=== PATIENT | male | born 1940 | race Caucasian/White ===

== ENCOUNTER 2016-11-10 17:30 | Emergency (ER) | payer MEDICARE, OTHER ==
[2016-11-10 18:43] LABS: BASOPHIL 1.8 % (0-2); EOSINOPHIL 0.9 % (0-7); HCT 27.8 % (42.0-52.0); HGB 9.5 g/dl (13.2-18.0); LYMPHOCYTE 30.6 % (15-48); MCH 36.1 pg (25.0-31.0); MCHC 34.2 g/dL (32.0-36.0); MCV 105.7 fL (78.0-100.0); MONOCYTE 63.1 % (0-12); MPV 12.5 fL (6.0-9.5); NEUTROPHIL 3.6 % (41-80); RBC 2.63 M/uL (4.70-6.00); RDW 23.9 % (11.5-14.0)
[2016-11-10 18:46] LABS: PLT 45 K/uL (150-400); WBC 1.1 K/uL (4.0-10.5)
[2016-11-10 18:49] LABS: BILIRUBIN NEGATIVE (NEGATIVE); BLOOD NEGATIVE Ery/uL (NEGATIVE); CLARITY CLEAR (CLEAR); COLOR YELLOW (YELLOW); GLUCOSE (U) 1+ mg/dL (NORMAL); KETONE (U) TRACE mg/dL (NEGATIVE); LEUKOCYTES NEGATIVE Leu/uL (NEGATIVE); NITRITE NEGATIVE (NEGATIVE); PROTEIN NEGATIVE (NEGATIVE); pH 5.5 (5.0-9.0)
[2016-11-10 18:49] LABS: INR 1.36 (0.9-1.2); PROTHROMBIN TIME 16.3 SECONDS (11.7-14.0); PTT 33.3 SECONDS (23.2-31.4)
[2016-11-10 18:57] LABS: LACTIC ACID 4.2 mmol/L (0.5-2.2)
[2016-11-10 19:01] LABS: ALBUMIN 3.2 g/dL (3.4-4.8); BILIRUBIN - TOTAL 0.9 mg/dL (0.1-1.0); CREATININE 0.7 mg/dL (0.7-1.2); GLOBULIN (CALCULATION) 2.4 g/dL (2.2-4.2); POTASSIUM 3.9 mmol/L (3.5-5.1); TOTAL PROTEIN 5.6 g/dL (6.4-8.3)
== END 2016-11-10 22:51 | disposition home or self-care (01) ==
LOC: FER 17:30
PROVIDERS: Emergency Medicine
DX: D70.9 Neutropenia, unspecified (principal); R50.81 Fever presenting with conditions classified elsewhere; E86.0 Dehydration; E11.9 Type 2 diabetes mellitus without complications; I10 Essential (primary) hypertension; R82.90 Unspecified abnormal findings in urine; Z79.84 Long term (current) use of oral hypoglycemic drugs; Z79.899 Other long term (current) drug therapy; Z85.01 Personal history of malignant neoplasm of esophagus; Z85.830 Personal history of malignant neoplasm of bone; Z85.05 Personal history of malignant neoplasm of liver; Z85.118 Personal history of other malignant neoplasm of bronchus and lung
CPT/HCPCS: 36415; 71020; 80053; 81003; 83605; 85025; 85610; 85730; 87040; 87088; 87804; 87899; 93005

== ENCOUNTER 2017-02-16 12:52 | Inpatient (IN) | payer MEDICARE, OTHER ==
[~2017-02-16] VITALS: Ht 170 cm; Wt 83.0 kg
[2017-02-16 14:06] LABS: ALBUMIN 2.9 g/dL (3.4-4.8); CREATININE 0.5 mg/dL (0.7-1.2); GLOBULIN (CALCULATION) 2.4 g/dL (2.2-4.2); TOTAL PROTEIN 5.3 g/dL (6.4-8.3)
[2017-02-16 14:11] LABS: LACTIC ACID 2.7 mmol/L (0.5-2.2)
[2017-02-16 14:14] LABS: BASOPHIL 1.7 % (0-2); EOSINOPHIL 3.3 % (0-7); HCT 40.7 % (42.0-52.0); HGB 14.8 g/dl (13.2-18.0); MCH 34.3 pg (25.0-31.0); MCHC 36.4 g/dL (32.0-36.0); MCV 94.2 fL (78.0-100.0); MONOCYTE 18.3 % (0-12); NEUTROPHIL 21.7 % (41-80); RBC 4.32 M/uL (4.70-6.00); RDW 13.9 % (11.5-14.0)
[2017-02-16 14:20] LABS: PLT 20 K/uL (150-400)
[2017-02-16 14:21] LABS: WBC 0.6 K/uL (4.0-10.5)
[2017-02-16 16:05] LABS: BILIRUBIN NEGATIVE (NEGATIVE); BLOOD 1+ Ery/uL (NEGATIVE); CLARITY CLEAR (CLEAR); COLOR YELLOW (YELLOW); GLUCOSE (U) NORMAL (NORMAL); KETONE (U) NEGATIVE (NEGATIVE); LEUKOCYTES NEGATIVE Leu/uL (NEGATIVE); NITRITE NEGATIVE (NEGATIVE); PROTEIN NEGATIVE (NEGATIVE)
[2017-02-16 16:28] LABS: BACTERIA TRACE
[2017-02-16 20:10] LABS: INR 1.01 (0.9-1.2); PROTHROMBIN TIME 12.9 SECONDS (11.7-14.0)
[2017-02-16 20:11] LABS: PTT 30.9 SECONDS (23.2-31.4)
[2017-02-16 20:28] LABS: CKMB 4.45 ng/mL (0.97-4.94); TROPONIN T < 0.010 ng/mL
[2017-02-16 22:16] LABS: CKMB 2.71 ng/mL (0.97-4.94); TROPONIN T < 0.010 ng/mL
[2017-02-17 03:15] LABS: BASOPHIL 1.4 % (0-2); EOSINOPHIL 1.4 % (0-7); HCT 38.6 % (42.0-52.0); LYMPHOCYTE 33.8 % (15-48); MCH 34.4 pg (25.0-31.0); MCHC 36.3 g/dL (32.0-36.0); MCV 94.8 fL (78.0-100.0); MONOCYTE 16.2 % (0-12); MPV 10.6 fL (6.0-9.5); NEUTROPHIL 47.2 % (41-80); RBC 4.07 M/uL (4.70-6.00); RDW 13.9 % (11.5-14.0)
[2017-02-17 03:33] LABS: ALBUMIN 2.5 g/dL (3.4-4.8); BILIRUBIN - TOTAL 0.9 mg/dL (0.1-1.0); CREATININE 0.6 mg/dL (0.7-1.2); GLOBULIN (CALCULATION) 2.2 g/dL (2.2-4.2); TOTAL PROTEIN 4.7 g/dL (6.4-8.3); WBC 0.7 K/uL (4.0-10.5)
[2017-02-17 03:34] LABS: PLT 13 K/uL (150-400)
[2017-02-17 03:41] LABS: FT4 (FREE T4) 1.01 ng/dL (0.93-1.70); TSH (THYROID STIM HORMONE) 2.75 uIU/mL (0.270-4.200)
[2017-02-17 03:50] LABS: TROPONIN T < 0.010 ng/mL
[2017-02-18 05:49] LABS: HGB 14.6 g/dl (13.2-18.0); MCHC 35.6 g/dL (32.0-36.0); MCV 95.6 fL (78.0-100.0); MPV 11.3 fL (6.0-9.5); RBC 4.29 M/uL (4.70-6.00); RDW 14.3 % (11.5-14.0)
[2017-02-18 06:04] LABS: ALBUMIN 2.3 g/dL (3.4-4.8); BILIRUBIN - TOTAL 0.8 mg/dL (0.1-1.0); CREATININE 0.6 mg/dL (0.7-1.2); GLOBULIN (CALCULATION) 2.5 g/dL (2.2-4.2); POTASSIUM 3.8 mmol/L (3.5-5.1); TOTAL PROTEIN 4.8 g/dL (6.4-8.3)
[2017-02-18 08:50] LABS: BASOPHIL 0.4 % (0-2); EOSINOPHIL 0.2 % (0-7); HCT 39.2 % (42.0-52.0); MCH 34.3 pg (25.0-31.0); MCHC 35.7 g/dL (32.0-36.0); MCV 96.1 fL (78.0-100.0); MONOCYTE 0.2 % (0-12); MPV 10.4 fL (6.0-9.5); RBC 4.08 M/uL (4.70-6.00); RDW 14.2 % (11.5-14.0); WBC 4.5 K/uL (4.0-10.5)
[2017-02-18 09:15] LABS: PLT 26 K/uL (150-400)
[2017-02-18 09:16] LABS: NEUTROPHIL 88.2 % (41-80)
[2017-02-18 09:20] LABS: BILIRUBIN 1+ mg/dL (NEGATIVE); BLOOD NEGATIVE Ery/uL (NEGATIVE); CLARITY CLEAR (CLEAR); COLOR YELLOW (YELLOW); GLUCOSE (U) NORMAL (NORMAL); KETONE (U) 1+ (SMALL) mg/dL (NEGATIVE); LEUKOCYTES NEGATIVE Leu/uL (NEGATIVE); NITRITE POSITIVE (NEGATIVE); PROTEIN 1+ mg/dL (NEGATIVE); SPECIFIC GRAVITY 1.025 (1.001-1.030); UROBILINOGEN 0.2 mg/dL (0.2-1.0)
[2017-02-18 09:21] LABS: BACTERIA 2+
--- NOTE | 2017-02-18 15:38 | NUR ---
NURSE TO PATIENTS BEDSIDE AFTER CAME TO DESK AND STATED THAT PATIENT WAS NOT KEEPING ON OXYGEN MASK, PT IN RESPIRATORY DISTRESS, LABORED BREATHING O2 SAT 83%, PT PLACED BACK ON 50% VENTI MASK O2 SAT CONTINUED TO REMAIN IN MID 80'S, NON REBREATHER APPLIED TO PATIENT AND , DUO-NEB STARTED, MD NOTIFIED PERSONALLY BY MYSELF. MD REQUESTED TO COME TO BEDSIDE. MD DID NOT COME TO BEDSIDE AT THIS TIME PT IMPROVED. VITALS AT 1540 119/66, O2 SAT ON NON-REBREATHER 97% HR 121 A-FIB. AWARE OF ALL. NO OTHER NEW ORDERS AT THIS TIME
[2017-02-18 17:29] LABS: CREATININE 0.7 mg/dL (0.7-1.2); MAGNESIUM 1.49 mg/dL (1.40-2.10); POTASSIUM 3.5 mmol/L (3.5-5.1)
--- NOTE | 2017-02-18 19:17 | NUR ---
DR. RENTERIA CALLED AND NOTIFIED THAT LACTIC ACID 5.0. DR. RENTERIA ORDERED TO GIVE BICARB AND THAT HE WOULD COME TO THE UNIT. POLYMER TESTER NURSE CLYDE NOTIFIED. BP 102/54 HR 106 O2 90% ON NON-REBREATHER
[2017-02-18 20:35] LABS: INR 1.49 (0.9-1.2); PROTHROMBIN TIME 17.5 SECONDS (11.7-14.0)
[2017-02-18 20:36] LABS: PTT 35.6 SECONDS (23.2-31.4)
[2017-02-18 20:39] LABS: AMYLASE 31 U/L (28-100); LIPASE 6 U/L (13-60)
[2017-02-18 21:21] LABS: BILIRUBIN 1+ mg/dL (NEGATIVE); BLOOD 2+ Ery/uL (NEGATIVE); CLARITY CLEAR (CLEAR); COLOR YELLOW (YELLOW); GLUCOSE (U) NORMAL (NORMAL); KETONE (U) 1+ (SMALL) mg/dL (NEGATIVE); LEUKOCYTES NEGATIVE Leu/uL (NEGATIVE); NITRITE NEGATIVE (NEGATIVE); PROTEIN 1+ mg/dL (NEGATIVE); SPECIFIC GRAVITY >=1.030 (1.001-1.030); UROBILINOGEN 0.2 mg/dL (0.2-1.0)
--- NOTE | 2017-02-19 08:35 | NUR ---
SPOKE WITH MD AND TIME CHECKER, FAMILY IS REQUESTING ALL MEDICATIONS BE TURNED OFF AT THIS TIME. FAMILY WANTS COMFORT CARE ONLY AND FOR PATIENT TO GO HOME WITH HOSPICE SOON POSSIBLE. MEDICATIONS TURNED OFF. BIPAP LEFT ON PT AT THIS TIME PER FAMILY REQUEST.
--- NOTE | 2017-02-19 11:52 | NUR ---
MD CALLED TO BEDSIDE, PT WAS PULSELESS W/O RESPIRATIONS, MD PRONOUNCED PT AT 1100. FAMILY AT [facility]. PT WAS MADE COMFORT CARE PRIOR TO PASSING, PT WAS NOT ON MONITOR. PT WAS DNR.
== END 2017-02-19 13:45 | disposition expired | DRG 871 ==
LOC: FER 12:52 → FTCU 15:50 → FICU 02-19 01:38
PROVIDERS: Internal Medicine; ADMIT Internal Medicine
PROC: 30233R1 Transfusion of Nonautologous Platelets into Peripheral Vein, Percutaneous Approach (ICD-10-PCS; principal; 2017-02-16)
DX: A41.9 Sepsis, unspecified organism (principal); J96.01 Acute respiratory failure with hypoxia; D61.9 Aplastic anemia, unspecified; A04.7 Enterocolitis due to Clostridium difficile; D70.1 Agranulocytosis secondary to cancer chemotherapy; C78.7 Secondary malignant neoplasm of liver and intrahepatic bile duct; C78.89 Secondary malignant neoplasm of other digestive organs; B37.0 Candidal stomatitis; N39.0 Urinary tract infection, site not specified; C34.90 Malignant neoplasm of unspecified part of unspecified bronchus or lung; C79.51 Secondary malignant neoplasm of bone; C79.31 Secondary malignant neoplasm of brain; J98.11 Atelectasis; Z51.5 Encounter for palliative care; R13.10 Dysphagia, unspecified; I48.0 Paroxysmal atrial fibrillation; T45.1X5A Adverse effect of antineoplastic and immunosuppressive drugs, initial encounter; R19.7 Diarrhea, unspecified; I25.10 Atherosclerotic heart disease of native coronary artery without angina pectoris; I25.2 Old myocardial infarction; E11.9 Type 2 diabetes mellitus without complications; I10 Essential (primary) hypertension; E78.5 Hyperlipidemia, unspecified; E03.9 Hypothyroidism, unspecified; K20.9 Esophagitis, unspecified; B96.20 Unspecified Escherichia coli [E. coli] as the cause of diseases classified elsewhere; Z66 Do not resuscitate; Z87.891 Personal history of nicotine dependence; K12.30 Oral mucositis (ulcerative), unspecified; D69.59 Other secondary thrombocytopenia; I34.0 Nonrheumatic mitral (valve) insufficiency; R50.9 Fever, unspecified
CPT/HCPCS: 36415; 36430; 36600; 71010; 80048; 80053; 80202; 81001; 81003; 82150; 82533; 82550; 82553; 82803; 82962; 83605; 83690; 83735; 83880; 84145; 84439; 84443; 84484; 85025; 85610; 85730; 86850; 86900; 86901; 86922; 87040; 87076; 87088; 87186; 87205; 87328; 87337; 87493; 93005; 94660; J0637; J1170; J1447; J1450; J1940; J1956; J2060; J2185; J2270; J3411; J3475; P9035